=== PATIENT | male | born 2000 | race Caucasian/White ===

== ENCOUNTER 2023-07-17 21:18 | Emergency (ER) | payer MEDICAID, OTHER ==
[~2023-07-17] VITALS: Ht 167.6 cm; Wt 55.8 kg
[2023-07-17 21:28] VITALS: BP 133/76; PULSE 96; RESP 18; TEMP 97.6; O2SAT 100
[2023-07-17 23:00] VITALS: O2SAT 100
[2023-07-17] MEDS ORDERED: IBUPROFEN 600 MG TAB PO ONE (23:25)
== END 2023-07-17 23:43 | disposition home or self-care (01) ==
LOC: MED 21:18
DX: R07.89 Other chest pain (principal)
CPT/HCPCS: 71045; 93005; 99283; Q0092